=== PATIENT | female | born 1995 | race Caucasian/White ===

== ENCOUNTER 2018-02-23 09:27 | Emergency (ER) | payer MEDICAID ==
[2018-02-23] MEDS: ONDANSETRON (ODT) 4 MG TAB ODT (10:33)
[2018-02-23 11:39] LABS: ADD MAN DIFF? NO
[2018-02-23 11:44] LABS: WHITE BLOOD COUNT 8.5 10^3/ul (4.8-10.8)
[2018-02-23 11:44] LABS: BASOPHIL # 0.1 10^3/ul (0.0-0.1); BASOPHILS % 0.6 % (0.0-2.0); EOSINOPHILS # 0.6 10^3/ul (0.0-0.5); EOSINOPHILS % 7.3 % (0.0-7.0); HEMATOCRIT 43.7 % (37.0-47.0); HEMOGLOBIN 14.9 g/dl (12.0-16.0); LYMPHOCYTES # 2.6 10^3/ul (0.8-2.9); LYMPHOCYTES % 31.1 % (15.0-51.0); MEAN CORPUSCULAR HEMOGLOBIN 30.3 pg (29.0-33.0); MEAN CORPUSCULAR HGB CONC 34.1 g/dl (32.0-37.0); MEAN PLATELET VOLUME 10.3 fl (7.4-10.4); MONOCYTE # 0.6 10^3/ul (0.3-0.9); MONOCYTES % 6.8 % (0.0-11.0); NEUTROPHIL # 4.6 10^3/ul (1.6-7.5); PLATELET COUNT 383 10^3/UL (140-415); RED BLOOD COUNT 4.91 10^6/ul (4.20-5.40); RED CELL DISTRIBUTION WIDTH 12.1 % (11.5-14.5)
[2018-02-23 11:53] LABS: ADD UMIC NO; UR ASCORBIC ACID NEGATIVE (NEGATIVE); UR BILIRUBIN (Dip) NEGATIVE (NEGATIVE); UR BLOOD (Dip) NEGATIVE (NEGATIVE); UR CLARITY CLEAR (CLEAR); UR COLOR STRAW (YELLOW); UR GLUCOSE (Dip) NEGATIVE (NEGATIVE); UR KETONES (Dip) NEGATIVE (NEGATIVE); UR LEUKOCYTE ESTERASE (Dip) NEGATIVE Leu/ul (NEGATIVE); UR NITRITE (Dip) NEGATIVE (NEGATIVE); UR SPECIFIC GRAVITY (Dip) 1.009 (1.003-1.030); UR TOTAL PROTEIN (Dip) NEGATIVE (NEGATIVE); UR UROBILINOGEN (Dip) NEGATIVE (NEGATIVE)
[2018-02-23 12:05] LABS: ALANINE AMINOTRANSFERASE 44 IU/L (13-69); ALBUMIN 4.9 g/dl (3.3-4.9); ALBUMIN/GLOBULIN RATIO 1.19; ALKALINE PHOSPHATASE 106 IU/L (42-121); AMYLASE 90 U/L (11-123); ANION GAP 18 (8-16); ASPARTATE AMINO TRANSFERASE 34 IU/L (15-46); BILIRUBIN,INDIRECT 0.6 mg/dl (0-1.1); BILIRUBIN,TOTAL 0.6 mg/dl (0.2-1.3); BLOOD UREA NITROGEN 12 mg/dl (7-20); CALCIUM 10.2 mg/dl (8.4-10.2); CARBON DIOXIDE 27 mmol/L (21-31); CHLORIDE 103 mmol/L (97-110); GLUCOSE 91 mg/dl (70-220); LIPASE 107 U/L (23-300); SODIUM 144 mmol/L (135-144)
[2018-02-23] MEDS: LIDOCAINE/MYLANTA 40 ML BTL PO (12:31)
== END 2018-02-23 13:07 | disposition home or self-care (01) ==
LOC: FTE 09:27
DX: K29.70 Gastritis, unspecified, without bleeding (principal)
CPT/HCPCS: 76705; 80053; 81003; 81025; 82150; 83690; 85025; 87086; 99284-25

== ENCOUNTER 2018-09-27 15:13 | Outpatient (CLI) | payer MEDICAID ==
[2018-09-27 18:20] LABS: ALANINE AMINOTRANSFERASE 27 IU/L (13-69); ALBUMIN 3.3 g/dl (3.3-4.9); ALKALINE PHOSPHATASE 173 IU/L (42-121); ANION GAP 10 (5-13); ASPARTATE AMINO TRANSFERASE 33 IU/L (15-46); BILIRUBIN,INDIRECT 0.3 mg/dl (0-1.1); BILIRUBIN,TOTAL 0.3 mg/dl (0.2-1.3); BLOOD UREA NITROGEN 8 mg/dl (7-20); CARBON DIOXIDE 19 mmol/L (21-31); CHLORIDE 107 mmol/L (97-110); CREATININE 0.39 mg/dl (0.44-1.00); Estimated GFR > 60 mL/min (>60); GLUCOSE 84 mg/dl (70-220); SODIUM 136 mmol/L (135-144); TOTAL PROTEIN 6.6 g/dl (6.1-8.1)
== END 2018-09-27 19:00 | disposition home or self-care (01) ==
LOC: OBT 15:13 → L-D 15:15 → OBT 19:00
DX: O26.893 Other specified pregnancy related conditions, third trimester (principal); Z3A.35 35 weeks gestation of pregnancy; L29.9 Pruritus, unspecified
CPT/HCPCS: 76818; 80053; 83789

== ENCOUNTER 2018-09-30 11:12 | Outpatient (CLI) | payer MEDICAID ==
[2018-09-30 12:53] LABS: ADD UMIC YES; UR ASCORBIC ACID NEGATIVE (NEGATIVE); UR BACTERIA FEW /HPF (NONE SEEN); UR BILIRUBIN (Dip) NEGATIVE (NEGATIVE); UR BLOOD (Dip) NEGATIVE (NEGATIVE); UR CLARITY SLIGHTLY CLOUDY (CLEAR); UR COLOR YELLOW (YELLOW); UR GLUCOSE (Dip) NEGATIVE (NEGATIVE); UR KETONES (Dip) NEGATIVE (NEGATIVE); UR LEUKOCYTE ESTERASE (Dip) 2+ Leu/ul (NEGATIVE); UR NITRITE (Dip) NEGATIVE (NEGATIVE); UR RBC 1 /HPF (0-5); UR SPECIFIC GRAVITY (Dip) 1.013 (1.003-1.030); UR SQUAMOUS EPITHELIAL CELL MODERATE /HPF (FEW); UR TOTAL PROTEIN (Dip) NEGATIVE (NEGATIVE); UR UROBILINOGEN (Dip) NEGATIVE (NEGATIVE); UR WBC 13 /HPF (0-5)
== END 2018-09-30 16:20 | disposition home or self-care (01) ==
LOC: OBT 11:12 → L-D 11:12 → OBT 16:20
DX: O26.613 Liver and biliary tract disorders in pregnancy, third trimester (principal); K83.1 Obstruction of bile duct; Z3A.35 35 weeks gestation of pregnancy
CPT/HCPCS: 76815; 76818; 81001; 87086

== ENCOUNTER 2018-10-11 18:06 | Inpatient (IN) | payer MEDICAID ==
[2018-10-11] MEDS ORDERED: OXYTOCIN 30 UNITS/LR 500 ML IV (18:30)
[2018-10-11] MEDS ORDERED: BUTORPHANOL 1 MG INJ IV (18:30)
[2018-10-11] MEDS ORDERED: MISOPROSTOL 200 MCG TAB PR (18:30)
[2018-10-11] MEDS ORDERED: IBUPROFEN 600 MG TAB PO (18:30)
[2018-10-11] MEDS ORDERED: BUTORPHANOL 2 MG INJ IV (18:30)
[2018-10-11] MEDS ORDERED: CARBOPROST 250 MCG INJ IM (18:30)
[2018-10-11] MEDS ORDERED: METHYLERGONOVINE 0.2 MG INJ IM (18:30)
[2018-10-11 19:33] LABS: ADD MAN DIFF? NO
[2018-10-11 19:35] LABS: BASOPHILS % 0.4 % (0.0-2.0); EOSINOPHILS # 0.4 10^3/ul (0.0-0.5); EOSINOPHILS % 5.7 % (0.0-7.0); HEMATOCRIT 36.4 % (37.0-47.0); HEMOGLOBIN 12.4 g/dl (12.0-16.0); LYMPHOCYTES # 1.9 10^3/ul (0.8-2.9); LYMPHOCYTES % 26.7 % (15.0-51.0); MEAN CORPUSCULAR HGB CONC 34.1 g/dl (32.0-37.0); MEAN CORPUSCULAR VOLUME 87.9 fl (82.0-101.0); MEAN PLATELET VOLUME 11.2 fl (7.4-10.4); MONOCYTE # 0.5 10^3/ul (0.3-0.9); MONOCYTES % 6.8 % (0.0-11.0); NEUTROPHIL # 4.2 10^3/ul (1.6-7.5); NEUTROPHILS % 60.1 % (39.0-77.0); PLATELET COUNT 254 10^3/UL (140-415); RED BLOOD COUNT 4.14 10^6/ul (4.20-5.40); RED CELL DISTRIBUTION WIDTH 13.4 % (11.5-14.5)
[2018-10-11] MEDS: LACTATED RINGER'S 1,000 ML IV (19:40)
[2018-10-11 20:01] LABS: INR 0.93; PROTIME 12.6 Sec (11.9-14.9)
[2018-10-11 20:02] LABS: PARTIAL THROMBOPLASTIN TIME 25.5 Sec (23.0-35.0)
[2018-10-11] MEDS: MISOPROSTOL 50 MCG CAPSULE PO (21:16)
[2018-10-12] MEDS: SALINE 0.65% 45 ML NAS SPRAY NASAL (00:26)
[2018-10-12] MEDS: LACTATED RINGER'S 1,000 ML IV ×3 (01:49→18:43)
[2018-10-12] MEDS: MISOPROSTOL 50 MCG CAPSULE PO ×5 (11:03→23:00)
[2018-10-12 13:27] LABS: HEPATITIS B SURFACE ANTIGEN NEGATIVE (NEGATIVE)
[2018-10-12] MEDS: URSODIOL 300 MG CAP PO ×2 (14:48→20:54)
[2018-10-12 16:59] LABS: RAPID PLASMA REAGIN NONREACTIVE (NR)
[2018-10-13] MEDS: MISOPROSTOL 50 MCG CAPSULE PO ×3 (01:00→05:00)
[2018-10-13] MEDS: LACTATED RINGER'S 1,000 ML IV ×3 (02:30→17:48)
[2018-10-13] MEDS: URSODIOL 300 MG CAP PO ×3 (09:32→22:16)
[2018-10-13] MEDS: OXYTOCIN 30 UNITS/LR 500 ML IV (17:56)
[2018-10-14] MEDS: LACTATED RINGER'S 1,000 ML IV ×3 (02:31→17:56)
[2018-10-14] MEDS: URSODIOL 300 MG CAP PO ×2 (09:39→17:50)
[2018-10-14] MEDS ORDERED: MINERAL OIL LIGHT 10 ML VIAL (17:47)
[2018-10-14] MEDS ORDERED: LIDOCAINE 1% (MPF) 30 ML INJ (17:47)
[2018-10-14] MEDS ORDERED: LIDOCAINE 1% (MPF) 30 ML INJ INJ (18:00)
[2018-10-14] MEDS: MINERAL OIL LIGHT 10 ML VIAL TOP (19:47)
[2018-10-14] MEDS: OXYTOCIN 30 UNITS/LR 500 ML IV ×2 (19:47→21:38)
[2018-10-14] MEDS: ACETAMINOPHEN 1000MG/100ML IV 100 ML IVPB (19:58)
[2018-10-14] MEDS: KETOROLAC 30 MG INJ IV (20:32)
[2018-10-14] MEDS: LIDOCAINE 1% (MPF) 30 ML INJ INJ (20:34)
[2018-10-14] MEDS ORDERED: MISOPROSTOL 200 MCG TAB PR (22:30)
[2018-10-14] MEDS ORDERED: METHYLERGONOVINE 0.2 MG INJ IM (22:30)
[2018-10-14] MEDS ORDERED: CARBOPROST 250 MCG INJ IM (22:30)
[2018-10-14] MEDS ORDERED: HYDROCODONE/APAP (5/325) TAB PO (22:30)
[2018-10-14] MEDS ORDERED: OXYTOCIN 30 UNITS/LR 500 ML IV (22:30)
[2018-10-14] MEDS ORDERED: ZOLPIDEM 5 MG TAB PO (22:30)
[2018-10-14] MEDS: MAGNESIUM HYDROXIDE 30ML CUP PO (23:11)
[2018-10-14] MEDS: WITCH HAZEL/GLYCERIN PAD PR (23:11)
[2018-10-14] MEDS: BENZOCAINE 20% 56 ML SPRAY TOP (23:11)
[2018-10-14] MEDS: SENNA/DOCUSATE NA (8.6MG/50MG) TAB PO (23:11)
[2018-10-15] MEDS: LACTATED RINGER'S 1,000 ML IV* ×2 (01:35→07:35)
[2018-10-15] MEDS: IBUPROFEN 600 MG TAB PO ×4 (05:48→18:18)
[2018-10-15] MEDS: SENNA/DOCUSATE NA (8.6MG/50MG) TAB PO ×2 (08:15→21:00)
[2018-10-15] MEDS: MAGNESIUM HYDROXIDE 30ML CUP PO ×2 (08:15→21:00)
[2018-10-15] MEDS: HYDROCODONE/APAP (5/325) TAB PO (08:16)
[2018-10-15 09:03] LABS: ADD MAN DIFF? NO
[2018-10-15 09:07] LABS: ABNORMAL IP MESSAGE 1; BASOPHILS % 0.2 % (0.0-2.0); EOSINOPHILS # 0.1 10^3/ul (0.0-0.5); EOSINOPHILS % 0.5 % (0.0-7.0); HEMATOCRIT 28.7 % (37.0-47.0); HEMOGLOBIN 9.7 g/dl (12.0-16.0); LYMPHOCYTES # 1.6 10^3/ul (0.8-2.9); LYMPHOCYTES % 10.8 % (15.0-51.0); MEAN CORPUSCULAR HEMOGLOBIN 29.7 pg (29.0-33.0); MEAN CORPUSCULAR HGB CONC 33.8 g/dl (32.0-37.0); MEAN CORPUSCULAR VOLUME 87.8 fl (82.0-101.0); MEAN PLATELET VOLUME 11.7 fl (7.4-10.4); MONOCYTE # 1.5 10^3/ul (0.3-0.9); MONOCYTES % 10.4 % (0.0-11.0); NEUTROPHIL # 11.5 10^3/ul (1.6-7.5); NEUTROPHILS % 77.6 % (39.0-77.0); RED BLOOD COUNT 3.27 10^6/ul (4.20-5.40); RED CELL DISTRIBUTION WIDTH 13.4 % (11.5-14.5)
[2018-10-15 09:07] LABS: WHITE BLOOD COUNT 14.8 10^3/ul (4.8-10.8)
[2018-10-15 09:20] LABS: PLATELET COUNT 184 10^3/UL (140-415); POSITIVE DIFF @See below
[2018-10-16] MEDS: IBUPROFEN 600 MG TAB PO ×4 (00:33→17:54)
[2018-10-16] MEDS: BENZOCAINE 20% 56 ML SPRAY TOP (02:22)
[2018-10-16] MEDS: DIBUCAINE 1% 30 GM OINT TOP (02:23)
[2018-10-16] MEDS: WITCH HAZEL/GLYCERIN PAD PR (02:23)
[2018-10-16] MEDS: HYDROCODONE/APAP (5/325) TAB PO ×3 (08:39→17:32)
[2018-10-16] MEDS: MEASLES,MUMPS,RUBELLA VACCINE INJ SC* (09:00)
[2018-10-16] MEDS: MAGNESIUM HYDROXIDE 30ML CUP PO (09:00)
[2018-10-16] MEDS: DIPHTH/TET/ACEL PERTUSS (ADULT) 0.5 ML VIAL IM* (09:00)
[2018-10-16] MEDS: SENNA/DOCUSATE NA (8.6MG/50MG) TAB PO (09:00)
[2018-10-16] MEDS: LANOLIN HPA 1 PKT TOP (17:58)
[2018-10-16] MEDS: VARICELLA VACCINE LIVE/PF 1,350 UNIT/0.5 ML ML SC* (18:05)
== END 2018-10-16 18:40 | disposition home or self-care (01) | DRG 805 ==
LOC: L-D 18:06 → PP1 10-14 22:03 → L-D 18:37
PROVIDERS: Obstetrics & Gynecology
PROC: 4A1HXCZ Monitoring of Products of Conception, Cardiac Rate, External Approach (ICD-10-PCS; 2018-10-11 09:00)
PROC: 3E0P7GC Introduction of Other Therapeutic Substance into Female Reproductive, Via Natural or Artificial Opening (ICD-10-PCS; 2018-10-11 09:00)
DX: O26.62 Liver and biliary tract disorders in childbirth (principal); K83.1 Obstruction of bile duct; Z37.0 Single live birth; Z3A.39 39 weeks gestation of pregnancy; O70.1 Second degree perineal laceration during delivery; Z3A.37 37 weeks gestation of pregnancy
CPT/HCPCS: 76815; 85025; 85610; 85730; 86592; 86850; 86900; 86901; 87340; 90715; 90716

== ENCOUNTER 2018-10-22 07:57 | Emergency (ER) | payer MEDICAID ==
[2018-10-22 09:03] LABS: ADD UMIC YES; UR ASCORBIC ACID NEGATIVE (NEGATIVE); UR BACTERIA FEW /HPF (NONE SEEN); UR BILIRUBIN (Dip) NEGATIVE (NEGATIVE); UR BLOOD (Dip) 3+ mg/dL (NEGATIVE); UR CLARITY SLIGHTLY CLOUDY (CLEAR); UR COLOR YELLOW (YELLOW); UR GLUCOSE (Dip) NEGATIVE (NEGATIVE); UR KETONES (Dip) NEGATIVE (NEGATIVE); UR LEUKOCYTE ESTERASE (Dip) 3+ Leu/ul (NEGATIVE); UR NITRITE (Dip) NEGATIVE (NEGATIVE); UR NONSQUAMOUS EPITHELIAL CELL <1 /HPF (NONE SEEN); UR RBC 58 /HPF (0-5); UR SPECIFIC GRAVITY (Dip) 1.019 (1.003-1.030); UR SQUAMOUS EPITHELIAL CELL FEW /HPF (FEW); UR TOTAL PROTEIN (Dip) 1+ mg/dl (NEGATIVE); UR UROBILINOGEN (Dip) NEGATIVE (NEGATIVE); UR WBC > 182 /HPF (0-5)
[2018-10-22] MEDS: ACETAMINOPHEN 500 MG TAB PO (09:28)
[2018-10-22] MEDS: LIDOCAINE 1% (MPF) 5 ML VIAL INFIL (09:28)
[2018-10-22] MEDS: CEFTRIAXONE 1 GM INJ IM (09:28)
== END 2018-10-22 09:44 | disposition home or self-care (01) ==
LOC: FTE 07:57
DX: O86.20 Urinary tract infection following delivery, unspecified (principal); B96.89 Other specified bacterial agents as the cause of diseases classified elsewhere; R10.2 Pelvic and perineal pain
CPT/HCPCS: 81001; 81025; 87086; 96372; 99285-25

== ENCOUNTER 2018-10-31 11:59 | Emergency (ER) | payer MEDICAID ==
[2018-10-31 13:20] LABS: ADD MAN DIFF? NO
[2018-10-31 13:22] LABS: BASOPHILS % 0.8 % (0.0-2.0); EOSINOPHILS # 0.6 10^3/ul (0.0-0.5); EOSINOPHILS % 11.1 % (0.0-7.0); HEMOGLOBIN 13.2 g/dl (12.0-16.0); LYMPHOCYTES # 1.8 10^3/ul (0.8-2.9); LYMPHOCYTES % 34.5 % (15.0-51.0); MEAN CORPUSCULAR HEMOGLOBIN 28.9 pg (29.0-33.0); MEAN CORPUSCULAR VOLUME 87.7 fl (82.0-101.0); MEAN PLATELET VOLUME 9.2 fl (7.4-10.4); MONOCYTE # 0.4 10^3/ul (0.3-0.9); MONOCYTES % 7.1 % (0.0-11.0); NEUTROPHIL # 2.5 10^3/ul (1.6-7.5); NEUTROPHILS % 46.3 % (39.0-77.0); PLATELET COUNT 475 10^3/UL (140-415); RED BLOOD COUNT 4.56 10^6/ul (4.20-5.40)
[2018-10-31 13:22] LABS: WHITE BLOOD COUNT 5.3 10^3/ul (4.8-10.8)
[2018-10-31 13:27] LABS: ADD UMIC YES; UR ASCORBIC ACID NEGATIVE (NEGATIVE); UR BILIRUBIN (Dip) NEGATIVE (NEGATIVE); UR BLOOD (Dip) 1+ mg/dL (NEGATIVE); UR CLARITY CLEAR (CLEAR); UR COLOR YELLOW (YELLOW); UR GLUCOSE (Dip) NEGATIVE (NEGATIVE); UR KETONES (Dip) NEGATIVE (NEGATIVE); UR LEUKOCYTE ESTERASE (Dip) TRACE Leu/ul (NEGATIVE); UR MUCUS FEW /HPF (NONE SEEN); UR NITRITE (Dip) NEGATIVE (NEGATIVE); UR RBC 1 /HPF (0-5); UR SPECIFIC GRAVITY (Dip) 1.027 (1.003-1.030); UR TOTAL PROTEIN (Dip) NEGATIVE (NEGATIVE); UR UROBILINOGEN (Dip) NEGATIVE (NEGATIVE); UR WBC 18 /HPF (0-5)
[2018-10-31 13:45] LABS: ALANINE AMINOTRANSFERASE 34 IU/L (13-69); ALBUMIN 4.5 g/dl (3.3-4.9); ALBUMIN/GLOBULIN RATIO 1.28; ALKALINE PHOSPHATASE 158 IU/L (42-121); ANION GAP 17 (5-13); ASPARTATE AMINO TRANSFERASE 33 IU/L (15-46); BILIRUBIN,INDIRECT 0.4 mg/dl (0-1.1); BILIRUBIN,TOTAL 0.4 mg/dl (0.2-1.3); BLOOD UREA NITROGEN 19 mg/dl (7-20); CALCIUM 9.5 mg/dl (8.4-10.2); CARBON DIOXIDE 23 mmol/L (21-31); CHLORIDE 104 mmol/L (97-110); CREATININE 0.56 mg/dl (0.44-1.00); Estimated GFR > 60 mL/min (>60); GLUCOSE 94 mg/dl (70-220); LIPASE 92 U/L (23-300); POTASSIUM 4.6 mmol/L (3.5-5.1); SODIUM 144 mmol/L (135-144)
[2018-10-31] MEDS: FLUCONAZOLE 150 MG TAB PO (14:52)
[2018-10-31] MEDS: CEFTRIAXONE 250 MG INJ IM (14:53)
== END 2018-10-31 15:36 | disposition home or self-care (01) ==
LOC: FTE 11:59
DX: O86.13 Vaginitis following delivery (principal); R40.2412 Glasgow coma scale score 13-15, at arrival to emergency department; B96.89 Other specified bacterial agents as the cause of diseases classified elsewhere; R10.2 Pelvic and perineal pain
CPT/HCPCS: 76856; 80053; 81001; 83690; 84702; 85025; 87086; 87210; 96372; 99285-25

== ENCOUNTER 2018-12-21 06:45 | Emergency (ER) | payer MEDICAID ==
[2018-12-21] MEDS: IBUPROFEN 800 MG TAB PO (07:22)
[2018-12-21] MEDS: ACETAMINOPHEN 500 MG TAB PO (07:23)
== END 2018-12-21 07:54 | disposition home or self-care (01) ==
LOC: FTE 06:45
DX: J02.9 Acute pharyngitis, unspecified (principal)
CPT/HCPCS: 99283; Z7610

== ENCOUNTER → 2019-05-24 | Emergency (ER) | payer MEDICAID | END | disposition home or self-care (01) | LOC: FTE 19:40 | DX: M54.2 Cervicalgia (principal) | CPT/HCPCS: 99282; Z7502 ==